=== PATIENT | male | born 1965 | race Caucasian/White ===

== ENCOUNTER 2018-08-14 18:17 | Emergency (ER) | payer MEDICAID ==
[~2018-08-14] VITALS: Ht 165.1 cm; Wt 180.0 kg
[~2018-08-14 18:17] MED LIST: METF-960 PO; PRAV20TA4 PO; SITA100 PO
[2018-08-14 18:34] LABS: GLUCOSE,POINT OF CARE 159 MG/DL (70-110)
[2018-08-14 19:49] LABS: BASOPHILS % (AUTO) 0.5 % (0.0-2.0); EOSINOPHILS % (AUTO) 0.7 % (1.0-6.0); HEMATOCRIT 43.3 % (41-53); HEMOGLOBIN 14.5 g/dL (13.5-17.5); LYMPHOCYTES # (AUTO) 3.9 K/uL (1.0-4.8); LYMPHOCYTES % (AUTO) 45.3 % (22.0-44.0); MEAN CORPUSCULAR HEMOGLOBIN 28.6 pg (26.0-34.0); MEAN CORPUSCULAR HGB CONC 33.6 G/dL (31.0-37.0); MEAN CORPUSCULAR VOLUME 85 fL (80-100); MONOCYTES # (AUTO) 0.6 K/uL (0.1-1.0); MONOCYTES % (AUTO) 7.1 % (2.0-9.0); NEUTROPHILS % (AUTO) 46.4 % (40.0-70.0); PLATELET COUNT (AUTO) 223 K/uL (150-450); RED BLOOD CELL COUNT(AUTO) 5.09 MIL/uL (4.50-5.90); RED CELL DISTRIBUTION WIDTH 12.9 % (11.5-14.5)
[2018-08-14 19:55] LABS: ANION GAP 7 mmol/L (8-16); CARBON DIOXIDE 28 mmol/L (22-29); CHLORIDE 103 mmol/L (98-107); GLOMERULAR FILTR. RATE CALC > 60 mL/min (>60); GLUCOSE,RANDOM 162 mg/dL (70-110); POTASSIUM 3.8 mmol/L (3.5-5.1); SODIUM SERUM 138 mmol/L (136-145); UREA NITROGEN, BLOOD 15 mg/dL (7-18)
[2018-08-14 20:11] LABS: B-TYPE NATRIURETIC PEPTIDE 5 pg/mL (0-100)
[2018-08-14 20:20] LABS: ALANINE AMINOTRANSFERASE 41 U/L (12-78); ALBUMIN 3.9 g/dL (3.4-5.0); ALKALINE PHOSPHATASE 112 U/L (46-116); ASPARTATE AMINOTRANSFERASE 21 U/L (15-37); BILIRUBIN,TOTAL 0.3 mg/dL (0.1-1.0); CREATINE KINASE, TOTAL ONLY 168 U/L (39-308); LIPASE 144 U/L (73-393); TOTAL PROTEIN, SERUM 7.3 g/dL (6.4-8.2)
[2018-08-14] MEDS: ACETAMINOPHEN 500 MG TABLET PO ONE ×2 (22:40→22:52)
[2018-08-14 23:01] VITALS: BP 135/77
== END 2018-08-14 23:25 | disposition home or self-care (01) ==
LOC: EMS 18:17
DX: S39.011A Strain of muscle, fascia and tendon of abdomen, initial encounter (principal); E11.9 Type 2 diabetes mellitus without complications; E78.00 Pure hypercholesterolemia, unspecified; Z88.0 Allergy status to penicillin; Z88.6 Allergy status to analgesic agent; Z79.84 Long term (current) use of oral hypoglycemic drugs; X50.0XXA Overexertion from strenuous movement or load, initial encounter; Y93.89 Activity, other specified; Y92.89 Other specified places as the place of occurrence of the external cause; Y99.8 Other external cause status
CPT/HCPCS: 76700; 93005

== ENCOUNTER 2024-02-07 23:58 | Emergency (ER) | payer MEDICAID ==
[~2024-02-07] VITALS: Ht 165.1 cm; Wt 82.0 kg
[~2024-02-07 23:58] MED LIST changes: +METF-1211 PO; -METF-960 PO
[2024-02-08 00:27] VITALS: BP 147/91; PULSE 77; RESP 20; TEMP 97.7; O2SAT 96
[2024-02-08 00:41] LABS: GLUCOMETER DEV NAME(LOC) ER.7; GLUCOSE,POINT OF CARE 254 MG/DL (70-110)
[2024-02-08 01:05] LABS: BASOPHILS % (AUTO) 0.4 % (0.0-2.0); EOSINOPHILS % (AUTO) 1.5 % (1.0-6.0); HEMATOCRIT 46.3 % (41-53); HEMOGLOBIN 15.6 g/dL (13.5-17.5); LYMPHOCYTES # (AUTO) 3.2 K/uL (1.0-4.8); LYMPHOCYTES % (AUTO) 50.9 % (22.0-44.0); MEAN CORPUSCULAR HEMOGLOBIN 28.9 pg (26.0-34.0); MEAN CORPUSCULAR HGB CONC 33.6 G/dL (31.0-37.0); MEAN CORPUSCULAR VOLUME 86 fL (80-100); MONOCYTES # (AUTO) 0.6 K/uL (0.1-1.0); MONOCYTES % (AUTO) 8.9 % (2.0-9.0); NEUTROPHILS # (AUTO) 2.4 K/uL (1.8-7.7); NEUTROPHILS % (AUTO) 38.3 % (40.0-70.0); PLATELET COUNT (AUTO) 199 K/uL (150-450); RED BLOOD CELL COUNT(AUTO) 5.38 MIL/uL (4.50-5.90); RED CELL DISTRIBUTION WIDTH 13.4 % (11.5-14.5); WHITE BLOOD COUNT (AUTO) 6.3 K/uL (4.5-11.0)
[2024-02-08 01:07] LABS: ANION GAP 8 mmol/L (8-16); CARBON DIOXIDE 30 mmol/L (22-29); CHLORIDE 98 mmol/L (98-107); CREATININE 0.78 mg/dL (0.60-1.30); GLOMERULAR FILTR. RATE CALC > 60 mL/min (>60); GLUCOSE,RANDOM 306 mg/dL (70-110); POTASSIUM 4.3 mmol/L (3.5-5.1); SODIUM SERUM 136 mmol/L (136-145); UREA NITROGEN, BLOOD 12 mg/dL (7-18)
[2024-02-08 01:13] LABS: ALANINE AMINOTRANSFERASE 87 U/L (12-78); ALBUMIN 3.8 g/dL (3.4-5.0); ALKALINE PHOSPHATASE 162 U/L (46-116); ASPARTATE AMINOTRANSFERASE 39 U/L (15-37); BILIRUBIN,TOTAL 0.6 mg/dL (0.1-1.0); LIPASE 48 U/L (16-77); TOTAL PROTEIN, SERUM 7.7 g/dL (6.4-8.2)
[2024-02-08 01:18] LABS: TROPONIN I-HIGH SENSITIVITY 4 ng/L (<76)
[2024-02-08] MEDS ORDERED: DIPH-1130 PO (02:21)
[2024-02-08] MEDS ORDERED: OMEP20 PO (02:21)
[2024-02-08] MEDS ORDERED: HYDR-4808 PO (02:21)
[2024-02-08] MEDS: ACETAMINOPHEN 500 MG TABLET PO ONE (02:27)
[2024-02-08] MEDS: HydrOXYzine PAMOATE 50 MG CAPSULE PO ONE (02:27)
[2024-02-08] MEDS: DIPHENOXYLATE/ATROP 2.5-0.025 MG TABLET PO ONE (02:27)
== END 2024-02-08 02:37 | disposition home or self-care (01) ==
LOC: EMS 23:58
DX: T78.40XA Allergy, unspecified, initial encounter (principal); K52.9 Noninfective gastroenteritis and colitis, unspecified; E11.65 Type 2 diabetes mellitus with hyperglycemia; E78.00 Pure hypercholesterolemia, unspecified; F12.90 Cannabis use, unspecified, uncomplicated; K76.0 Fatty (change of) liver, not elsewhere classified; Z88.0 Allergy status to penicillin; Z88.6 Allergy status to analgesic agent
CPT/HCPCS: 80048; 80076; 82962; 83690; 84484; 85025; 99284

== ENCOUNTER 2024-12-30 15:53 | Emergency (ER) | payer MEDICAID ==
[~2024-12-30] VITALS: Ht 165.1 cm; Wt 86.0 kg
[~2024-12-30 15:53] MED LIST changes: +DIPH-1130 PO; +HYDR-4808 PO; +OMEP-148 PO; -PRAV20TA4 PO; +PRAV20TA59 PO
[2024-12-30 16:07] VITALS: TEMP 98.1
[2024-12-30 16:31] LABS: GLUCOMETER DEV NAME(LOC) ER.7; GLUCOSE,POINT OF CARE 356 MG/DL (70-110)
[2024-12-30 16:46] LABS: APPEARANCE,URINE CLEAR (CLEAR); GLUCOSE, URINE (UA) >=1000 mg/dL (NEGATIVE); LEUKOCYTE ESTERASE ,URINE NEGATIVE (NEGATIVE); NITRATE,URINE NEGATIVE (NEGATIVE); OCCULT BLOOD,URINE NEGATIVE (NEGATIVE); SPECIFIC GRAVITIY, URINE 1.035 (1.003-1.030)
[2024-12-30 17:14] LABS: SQUAMOUS EPITHELIAL CELL,UR Rare /LPF (None Seen)
[2024-12-30] MEDS ORDERED: INSU100I26 SQ (17:31)
[2024-12-30] MEDS: SODIUM CHLORIDE 0.9% 1,000 ML IV ONE (18:03)
[2024-12-30] MEDS: ACETAMINOPHEN 325 MG TABLET PO ONE (18:03)
[2024-12-30] MEDS: LIDOCAINE 5% TRANSDERMAL PATCH TD ONE (18:04)
[2024-12-30 18:08] LABS: PLATELET COUNT (AUTO) 184 K/uL (150-450); RED BLOOD CELL COUNT(AUTO) 4.77 MIL/uL (4.50-5.90); RED CELL DISTRIBUTION WIDTH 13.3 % (11.5-14.5); WHITE BLOOD COUNT (AUTO) 6.8 K/uL (4.5-11.0)
[2024-12-30 18:09] LABS: CALCIUM, TOTAL 7.9 mg/dL (8.8-10.5); CREATININE 0.77 mg/dL (0.60-1.30); GLOMERULAR FILTR. RATE CALC > 60 mL/min (>60); GLUCOSE,RANDOM 302 mg/dL (70-110); SODIUM SERUM 136 mmol/L (136-145); UREA NITROGEN, BLOOD 10 mg/dL (7-18)
[2024-12-30 18:33] VITALS: BP 129/81; PULSE 79; RESP 16; O2SAT 98
== END 2024-12-30 18:50 | disposition home or self-care (01) ==
LOC: EMS 16:27
DX: M54.50 Low back pain, unspecified (principal); E11.65 Type 2 diabetes mellitus with hyperglycemia; E78.00 Pure hypercholesterolemia, unspecified; F12.90 Cannabis use, unspecified, uncomplicated; Z88.6 Allergy status to analgesic agent; Z88.0 Allergy status to penicillin; Z79.899 Other long term (current) drug therapy
CPT/HCPCS: 99284; 96360; 80048; 81001; 82962; 85025; 36415; J7030